=== PATIENT | male | born 1965 | race Caucasian/White ===

== ENCOUNTER 2016-12-15 09:45 | Emergency (ER) | payer BC, SELFPAY ==
[~2016-12-15] VITALS: Ht 185.4 cm; Wt 90.7 kg
[2016-12-15] MEDS ORDERED: MIDAZOLAM INJ 2 MG/2 ML VIAL (J2250) IV STA (10:09)
[2016-12-15 10:15] LABS: BASO % 0.3 % (0.0-1.0); EOS # 0.1 K/mm3 (0.0-0.50); EOS % 1.2 % (0.0-3.0); LARGE UNSTAINED CELL # 0.1 K/mm3 (0.0-0.4); LARGE UNSTAINED CELL % 0.8 % (0.0-4.0); LYMPH # 1.2 K/mm3 (1.5-4.5); LYMPH % 12.4 % (24.0-44.0); MEAN CORPUSCULAR HEMOGLOBIN 29.8 pg (27.0-33.0); MEAN CORPUSCULAR HGB CONC 33.6 g/dl (32.0-36.5); MEAN CORPUSCULAR VOLUME 88.8 fl (80.0-96.0); MONO # 0.3 K/mm3 (0.0-0.8); MONO % 3.2 % (0.0-5.0); NEUTROPHILS # 7.5 K/mm3 (1.8-7.7); NEUTROPHILS % 82.1 % (36.0-66.0); PLATELET COUNT, AUTOMATED 193 k/mm3 (150-450); RED CELL DISTRIBUTION WIDTH 14.1 % (11.5-14.5); WHITE BLOOD COUNT 9.1 K/mm3 (4.0-10.0)
[2016-12-15] MEDS ORDERED: ONDANSETRON 4MG/2ML VIAL (J2405) IV ONE (10:15)
[2016-12-15] MEDS ORDERED: OXAZEPAM 15 MG CAP PO ONE (10:15)
[2016-12-15 10:33] LABS: ALBUMIN 4.3 GM/DL (3.2-5.2); ALBUMIN/GLOBULIN RATIO 1.13 (1.00-1.93); ALKALINE PHOSPHATASE 75 U/L (45-117); ALT/SGPT 93 U/L (12-78); ANION GAP 13 MEQ/L (8-16); AST/SGOT 77 U/L (15-37); BILIRUBIN,DIRECT 0.1 MG/DL (0.0-0.2); BILIRUBIN,TOTAL 0.2 MG/DL (0.2-1.0); BLOOD UREA NITROGEN 19 MG/DL (7-18); CALCIUM LEVEL 8.4 MG/DL (8.5-10.1); CARBON DIOXIDE LEVEL 26 MEQ/L (21-32); CHLORIDE LEVEL 103 MEQ/L (98-107); CREATININE FOR GFR 0.82 MG/DL (0.70-1.30); GLOMERULAR FILTRATION RATE > 60.0 (>56); GLUCOSE, FASTING 126 MG/DL (70-105); POTASSIUM SERUM 3.9 MEQ/L (3.5-5.1); SODIUM LEVEL 142 MEQ/L (136-145); TOTAL PROTEIN 8.1 GM/DL (6.4-8.2)
[2016-12-15] MEDS ORDERED: LOPR1TAB6 PO (11:59)
[2016-12-15] MEDS ORDERED: ASPI81TA85 PO (11:59)
[2016-12-15] MEDS ORDERED: DAILTAB51 PO (11:59)
[2016-12-15] MEDS ORDERED: FOLI1TAB2 PO (11:59)
[2016-12-15] MEDS ORDERED: RANI150C PO (11:59)
[2016-12-15] MEDS ORDERED: THIA50CA PO (11:59)
[2016-12-15] MEDS ORDERED: SPIR25TA2 PO ×2 (11:59→13:17)
[2016-12-15] MEDS ORDERED: ATENOLOL 25 MG TAB PO ONE (12:15)
[2016-12-15] MEDS ORDERED: SPIRONOLACTONE 25 MG TAB PO ONE (12:15)
[2016-12-15 12:32] VITALS: BP 156/85
[2016-12-15] MEDS ORDERED: OXAZ30CA2 PO (13:17)
[2016-12-15] MEDS ORDERED: ATEN25TA PO (13:17)
[2016-12-15 13:27] VITALS: BP 165/74
== END 2016-12-15 13:29 | disposition home or self-care (01) ==
LOC: M ED 10:31
DX: F10.10 Alcohol abuse, uncomplicated (principal); I10 Essential (primary) hypertension; Z91.19 Patient's noncompliance with other medical treatment and regimen
CPT/HCPCS: 36415; 80048; 80076; 85025; 96374; 96375; 99285; G0480; J2250; J2405